=== PATIENT | female | born 2000 | race Caucasian/White ===

== ENCOUNTER 2018-03-27 18:26 | Emergency (ER) | payer BC ==
--- NOTE | 2018-03-27 18:41 | Emergency Department Record ---
History of Present Illness - General Chief Complaint: Fall Injury Stated Complaint: FALL INJURY, HEAD Time Seen by Provider: 03/27/18 18:39 Source: Patient Mode of Arrival: Ambulatory Limitations: No limitations - History of Present Illness Initial Comments: The patient fell yesterday while on cement and hit the back of her head. She has no LOC but a mild THOMAS after. There was no nausea, vomiting, or dizziness yesterday. Today she also was dizzy and has a THOMAS so she decided to come to the ER tonight. She has had no balance issues, nausea, vomiting, or confusion. The patient has not taken anything for pain and is not on any blood thinners. MD Complaint: Fall Onset/Timin -: Days(s) Fall From: Standing When Fall Occurred: 24 hours [employer] Fall Witnessed: Yes, by family - Related Data Home Medications Medication Instructions Recorded Confirmed Last Taken Cholecalciferol (Vitamin D3) 4,000 unit PO DAILY 03/27/18 03/27/18 Unknown [Vitamin D3] Docusate Sodium [Stool Softener] 100 mg PO DAILY 03/27/18 03/27/18 Unknown Fluoxetine HCl [Prozac] 40 mg PO DAILY 03/27/18 03/27/18 Unknown Hydroxyzine Pamoate [Vistaril] 50 mg PO DAILY 03/27/18 03/27/18 Unknown Lisdexamfetamine Dimesylate 40 mg PO DAILY 03/27/18 03/27/18 Unknown [Vyvanse] Omeprazole [Prilosec] 20 mg PO DAILY 03/27/18 03/27/18 Unknown Quetiapine Fumarate [Seroquel] 40 mg PO QAM 03/27/18 03/27/18 Unknown Allergies Allergy/AdvReac Type Severity Reaction Status Date / Time No Known Drug Allergies Allergy Verified 03/27/18 18:47 Review of Systems Constitutional: Denies: Chills, Fever Eyes: Denies: Eye discharge ENT: Denies: Congestion Respiratory: Denies: Cough, Dyspnea Physical Exam - General General Appearance: Alert, Oriented x3, Cooperative, No acute distress (The patient is laughing and joking while texting on her phone.) - Head Head exam: Atraumatic, Normocephalic, Normal inspection (There is tenderness to the occiput but no signs of trauma.) Head exam detail: negative: Contusion - Eye Eye exam: Normal appearance, PERRL, EOMI - ENT ENT exam: Normal exam, Mucous membranes moist, Normal external ear exam, Normal orophraynx, TM's normal bilaterally Throat exam: Normal inspection. negative: Tonsillar erythema, Tonsillar exudate - Neck Neck exam: Normal inspection, Full ROM. negative: Tenderness - Respiratory Respiratory exam: Normal lung sounds bilaterally. negative: Respiratory distress - Cardiovascular Cardiovascular Exam: Regular rate, Normal rhythm, Normal heart sounds - GI/Abdominal GI/Abdominal exam: Soft, Normal bowel sounds. negative: Tenderness - Back Back exam: Reports: Normal inspection, Full ROM. Denies: Muscle spasm, Rash noted, Tenderness - Neurological Neurological exam: Normal gait, Oriented X3, Other (The patient has a neg drift and rhomberg exams and is able to stand on one leg at a time with eyes closed without losing her balance.). negative: Abnormal gait, Alert, Motor sensory deficit Course - Reevaluation(s) Reevaluation #1: The patient is doing well and her THOMAS is improving. She is presently laughing and joking and texting on her phone. I explained to her that she has no high risk signs of a head injury and she is to return for any worsening symptoms. 03/27/18 19:41 Disposition Disposition: Discharge Clinical Impression: Minor head injury Qualifiers: Encounter type: initial encounter Qualified Code(s): S09.90XA - Unspecified injury of head, initial encounter Disposition: Home, Self-Care Condition: (2) Stable Instructions: Concussion (ED) Additional Instructions: Please use Tylenol or Motrin for pain. Please see your family doctor if not better in 1-2 days. Return to the ER for any worsening head pain, nausea, vomiting, confusion or balance issues. Forms: Patient Portal Access Time of Disposition: 19:44 Quality - Quality Measures Quality Measures: N/A - Blood Pressure Screening View Details: Yes Does Patient Have Any of the Following: No Blood Pressure Classification: Pre-Hypertensive BP Reading Systolic Measurement: 121 Diastolic Measurement: 80 Screening for High Blood Pressure: < Pre-Hypertensive BP, F/U Documented > [ [id number]] Pre-Hypertensive Follow-up Interventions: Referral to alternative/primary care provider.
[2018-03-27] MEDS: ACETAMINOPHEN 325 MG TAB PO ONE (19:19)
== END 2018-03-27 19:50 | disposition home or self-care (01) ==
LOC: ER 18:26
DX: S09.90XA Unspecified injury of head, initial encounter (principal); R51 Headache; R42 Dizziness and giddiness; W18.30XA Fall on same level, unspecified, initial encounter
CPT/HCPCS: 99282